=== PATIENT | female | born 1970 | race American Indian/Alaskan Native ===

== ENCOUNTER → 2017-06-04 | Outpatient (CLI) | payer BC ==
[2017-06-04 18:27] LABS: Alanine Aminotransfer (ALT/SGP 23 U/L (12-78); Albumin, Blood 2.9 g/dL (3.4-5.0); Albumin/Globulin Ratio 0.6 (0.8-1.8); Alk Phos 106 U/L (50-136); Anion Gap 9 mmol/L (6-16); Aspartate Aminotrans (AST/SGOT 13 U/L (12-37); Bilirubin, Total 0.3 mg/dL (0.1-1.0); Blood Urea Nitrogen 21 mg/dL (8-24); Bun/Creatinine Ratio 31.2 (12.0-20.0); CO2, Blood 28 mmol/L (21-32); CPK Creatine Kinase 31 U/L (26-193); Calcium, Blood 8.6 mg/dL (8.5-10.1); Chloride, Blood 98 mmol/L (98-108); Creatinine, Blood 0.67 mg/dL (0.40-1.00); Globulin, Blood 4.7 g/dL (2.2-4.0); Glomerular Filtration Rate >60 (60-); Glucose, Blood 347 mg/dL (70-99); Potassium, Blood 3.5 mmol/L (3.5-5.5); Sodium, Blood 135 mmol/L (136-145); Total Protein, Blood 7.6 g/dL (6.4-8.2)
== END ==
LOC: LAB SHORT 16:30
PROVIDERS: Physician Assistant
DX: R60.0 Localized edema (principal)
CPT/HCPCS: 80053; 82550

== ENCOUNTER → 2018-06-20 | Outpatient (CLI) | payer BC ==
[~2018-06-20] MED LIST: FOLI1; GLIP10ER; INSULANPEN; Janumet 50-1,01 EACH; KEVZARA200 MG/1.2; Lisinopril2.5 MG; METTREX2.5; PRAV20; PRED20; Prilosec Otc20 MG; TRAM50; VALA500
== END | disposition home or self-care (01) ==
LOC: PLD 13:01 → LAB SHORT 13:01
DX: R87.612 Low grade squamous intraepithelial lesion on cytologic smear of cervix (LGSIL) (principal); R87.810 Cervical high risk human papillomavirus (HPV) DNA test positive
CPT/HCPCS: 88305

== ENCOUNTER 2018-06-22 08:51 | Day surgery (SDC) | payer BC ==
[~2018-06-22] VITALS: Ht 157.5 cm; Wt 82.2 kg
[~2018-06-22 08:51] MED LIST changes: -Lisinopril2.5 MG
[2018-06-22] MEDS ORDERED: Lisinopril2.5 MG (09:49)
[2018-06-22] MEDS ORDERED: METTREX2.5 (09:50)
== END 2018-06-22 12:00 | disposition home or self-care (01) ==
LOC: ORSCSDS 08:51
PROVIDERS: Internal Medicine Gastroenterology
PROC: 0DB68ZX Excision of Stomach, Via Natural or Artificial Opening Endoscopic, Diagnostic (ICD-10-PCS; principal; 2018-06-22 10:15)
PROC: 0D757ZZ Dilation of Esophagus, Via Natural or Artificial Opening (ICD-10-PCS; principal; 2018-06-22 10:15)
DX: R13.10 Dysphagia, unspecified (principal); K21.9 Gastro-esophageal reflux disease without esophagitis; K29.70 Gastritis, unspecified, without bleeding; E11.9 Type 2 diabetes mellitus without complications; I10 Essential (primary) hypertension; E78.5 Hyperlipidemia, unspecified; Z79.899 Other long term (current) drug therapy; Z79.4 Long term (current) use of insulin
CPT/HCPCS: 82947; 88305; 88342; J2250; J7120

== ENCOUNTER 2018-12-22 12:56 | Day surgery (SDC) | payer BC ==
[~2018-12-22] VITALS: Ht 157.5 cm; Wt 79.0 kg
[~2018-12-22 12:56] MED LIST changes: +FOLI1 PO; +Glipizide Xl10 MG PO; +IBU800 MG PO; +Janumet 50-1,01 EACH PO; +KEVZARA150 MG/1.2 SC; +Lisinopril2.5 MG; +METTREX2.5 PO; +PRAV20 PO; +Ultram50 MG PO; +VALA500 PO; +VITAMIN D32000 UNIT PO; +[UNRECOGNIZED DRUG - OTHER] PO
--- NOTE | 2018-12-22 13:41 | NUR ---
12/22/18 1341 Rivera Baker CALL LIGHT WITHIN REACH
--- NOTE | 2018-12-22 15:32 | NUR ---
12/22/18 1532 Lolis Salazar [facility] [place] 66. PATIENT AWAKE ALERT RESP UNLABORED, SKIN WARM AND DRY, DRINKING ROOT BEER AND EATING COOKIES
== END 2018-12-22 16:41 | disposition home or self-care (01) ==
LOC: ORSCSDS 12:56
PROVIDERS: Obstetrics & Gynecology
PROC: 0TSD0ZZ Reposition Urethra, Open Approach (ICD-10-PCS; principal; 2018-12-22 14:15)
DX: N39.3 Stress incontinence (female) (male) (principal); E11.9 Type 2 diabetes mellitus without complications; K21.9 Gastro-esophageal reflux disease without esophagitis; Z79.899 Other long term (current) drug therapy
CPT/HCPCS: 82947; C1771; J1100; J1885; J1956; J2250; J2405; J2704; J3010; J7120

== ENCOUNTER 2020-07-31 09:23 | Emergency (ER) | payer BC ==
[~2020-07-31] VITALS: Ht 157.5 cm; Wt 81.7 kg
[2020-07-31] MEDS ORDERED: RINVOQ ER15 MG PO (09:36)
[2020-07-31 09:54] LABS: BASOPHILS ABSOLUTE AUTO 0.05 K/mm3 (0.00-0.23); BASOPHILS PERCENT AUTO 1 % (0-2); EOSINOPHILS ABSOLUTE AUTO 0.02 K/mm3 (0.00-0.68); EOSINOPHILS PERCENT AUTO 0 % (0-6); Hematocrit 38.3 % (33.0-51.0); Hemoglobin 12.4 g/dL (11.5-16.0); IMMATURE GRAN ABSOLUTE AUTO 0.04 K/mm3 (0.00-0.10); IMMATURE GRAN PERCENT AUTO 0 % (0-1); LYMPHOCYTES ABSOLUTE AUTO 0.88 K/mm3 (0.84-5.20); LYMPHOCYTES PERCENT AUTO 9 % (21-46); MONOCYTES ABSOLUTE AUTO 0.54 K/mm3 (0.16-1.47); MONOCYTES PERCENT AUTO 6 % (4-13); Mean Corpuscular HGB 31.8 pg (26.0-34.0); Mean Corpuscular HGB Conc 32.4 g/dL (31.5-36.5); Mean Corpuscular Volume 98 fL (80-100); Mean Platelet Volume 10.6 fL (9.1-12.4); NEUTROPHILS ABSOLUTE AUTO 7.87 K/mm3 (1.96-9.15); NEUTROPHILS PERCENT AUTO 84 % (41-73); Platelet Count 247 K/mm3 (150-400); RDW Coefficient Variation 13.5 % (11.7-14.2); RDW Standard Deviation 48.7 fL (35.1-46.3)
[2020-07-31 10:28] LABS: Alanine Aminotransfer (ALT/SGP 50 U/L (12-78); Alk Phos 85 U/L (50-136); Anion Gap 8 mmol/L (6-16); Aspartate Aminotrans (AST/SGOT 31 U/L (12-37); Bilirubin, Total 0.6 mg/dL (0.1-1.0); Blood Urea Nitrogen 15 mg/dL (8-24); Bun/Creatinine Ratio 24.2 (12.0-20.0); CO2, Blood 27 mmol/L (21-32); Calcium, Blood 9.3 mg/dL (8.5-10.1); Chloride, Blood 102 mmol/L (98-108); Creatinine, Blood 0.62 mg/dL (0.40-1.00); Glomerular Filtration Rate >60 (60-); Glucose, Blood 184 mg/dL (70-99); Potassium, Blood 3.5 mmol/L (3.5-5.5); Sodium, Blood 137 mmol/L (136-145); Troponin I <0.015 ng/mL (0.000-0.040)
[2020-07-31] MEDS ORDERED: AZIT250 PO (12:06)
[2020-07-31] MEDS ORDERED: CEFP200 PO (12:06)
== END 2020-07-31 12:10 | disposition home or self-care (01) ==
LOC: ER 09:23
PROVIDERS: Emergency Medicine
DX: M25.512 Pain in left shoulder (principal); R07.89 Other chest pain; E11.9 Type 2 diabetes mellitus without complications; E78.00 Pure hypercholesterolemia, unspecified; Z88.5 Allergy status to narcotic agent; Z79.84 Long term (current) use of oral hypoglycemic drugs; Z79.899 Other long term (current) drug therapy; Z87.39 Personal history of other diseases of the musculoskeletal system and connective tissue; Z20.822 Contact with and (suspected) exposure to COVID-19
CPT/HCPCS: 36415; 71046; 71260; 80053; 83880; 84484; 85025; 85379; 85651; 86140; 93005; 93010; 96374; 99285-25; J1885; Q9967

== ENCOUNTER → 2021-05-22 | Outpatient (CLI) | payer BC ==
[~2021-05-22] MED LIST changes: +AZIT250 PO; +CEFP200 PO; +RINVOQ ER15 MG PO
[2021-05-26 17:08] LABS: HPV 16 Negative (Negative); HPV 18 Negative (Negative); HPV OTHER HR TYPES Negative (Negative)
== END | disposition home or self-care (01) ==
LOC: LAB SHORT 12:57
PROVIDERS: Family Medicine
DX: Z01.419 Encounter for gynecological examination (general) (routine) without abnormal findings (principal)